=== PATIENT | female | born 1940 | race Caucasian/White ===

== ENCOUNTER 2025-07-30 18:27 | Inpatient (IN) | payer MEDICARE, OTHER ==
[~2025-07-30] VITALS: Ht 167.6 cm; Wt 54.9 kg
[2025-07-30] MEDS: LABETALOL 20 MG/4 ML VIAL IV ONE (00:09)
[2025-07-30 19:35] LABS: PLATELET COUNT (AUTO) 279 K/uL (150-450); RED BLOOD CELL COUNT(AUTO) 4.49 MIL/uL (4.0-5.2); RED CELL DISTRIBUTION WIDTH 18.9 % (11.5-15.0); WHITE BLOOD COUNT (AUTO) 5.1 K/uL (4.3-11.0)
[2025-07-30 19:46] LABS: CALCIUM, SERUM 9.1 mg/dL (8.5-10.1); CREATININE 1.2 mg/dL (0.6-1.3); SODIUM SERUM 133 mmol/L (136-145); UREA NITROGEN, BLOOD 22 mg/dL (7-18)
[2025-07-30 19:55] LABS: LACTIC ACID 2.5 mmol/L (0.4-2.0)
[2025-07-30 19:58] LABS: ASPARTATE AMINOTRANSFERASE 27 U/L (15-37); TOTAL PROTEIN, SERUM 6.8 g/dL (6.4-8.2)
[2025-07-30 20:27] LABS: CREATINE KINASE, TOTAL 119 U/L (26-192); SERUM AMMONIA < 11 umol/L (11-32)
[2025-07-30 20:50] LABS: ALCOHOL, BLOOD < 3 mg/dL (0-10)
[2025-07-30 21:02] LABS: APPEARANCE,URINE CLEAR (CLEAR); BLOOD, URINE NEGATIVE Ery/uL (NEGATIVE); LEUKOCYTE ESTERASE ,URINE NEGATIVE (NEGATIVE); NITRITE, URINE NEGATIVE (NEGATIVE); UGLUCOSE NEGATIVE (NEGATIVE)
[2025-07-30 21:10] LABS: AMPHETAMINE, URINE NEGATIVE (NEGATIVE); BARBITURATE, URINE NEGATIVE (NEGATIVE); BENZODIAZEPINE, URINE NEGATIVE (NEGATIVE); CANNABINOID, URINE NEGATIVE (NEGATIVE); COCCAINE, URINE NEGATIVE (NEGATIVE); OPIATE, URINE NEGATIVE (NEGATIVE)
[2025-07-30 21:14] LABS: INR 1.02 (0.91-1.10)
[2025-07-30 21:40] LABS: ADD URINE CULTURE NO; SQUAMOUS EPITHELIAL CELL,UR 0-2 /HPF (None Seen)
[2025-07-30] MEDS ORDERED: PIPERACI/TAZO 3.375GM/D5W 50ML PB IV ONE (22:31)
[2025-07-30] MEDS: PIPERACILLIN /TAZOBACTAM 3.375 G in IV D5W 50 ML IV ONE (22:45)
[2025-07-30] MEDS: IV NS 0.9% 500 ML BAG IV ONE (22:45)
[2025-07-30] MEDS ORDERED: DOSING PER PHARMACY-ZOSYN IV 1 EA EA XX PRN (23:30)
[2025-07-30] MEDS ORDERED: ONDANSETRON HCL/PF 4 MG/2 ML VIAL IVP PRN (23:30)
[2025-07-30] MEDS ORDERED: MAG HYDROX/AL HYDROX/SIMETH 30 ML UDC PO PRN (23:30)
[2025-07-30] MEDS ORDERED: Z GUARD REMEDY 4 OZ OINT TP PRN (23:30)
[2025-07-30] MEDS ORDERED: MAGNESIUM HYDROXIDE 30 ML UDC PO PRN (23:30)
[2025-07-31] MEDS ORDERED: LABETALOL HCL IV 100MG VIAL ONE (00:01)
[2025-07-31 01:25] VITALS: BP 155/77; TEMP 96.9; O2SAT 96
[2025-07-31] MEDS ORDERED: PIPERACI/TAZO 3.375GM/D5W 50ML PB IV ONE ×2 (01:46→06:05)
[2025-07-31] MEDS: ZOSYN IVPB 3.375 G in IV D5W 50ml IV SCH (01:48)
[2025-07-31] MEDS: IV NS 0.9% 1,000 ML IV PRN (01:57)
[2025-07-31 04:40] VITALS: BP 155/77; TEMP 97.7; O2SAT 98
[2025-07-31 05:51] LABS: PLATELET COUNT (AUTO) 278 K/uL (150-450); RED BLOOD CELL COUNT(AUTO) 4.22 MIL/uL (4.0-5.2); RED CELL DISTRIBUTION WIDTH 18.0 % (11.5-15.0); WHITE BLOOD COUNT (AUTO) 5.8 K/uL (4.3-11.0)
[2025-07-31 06:01] LABS: CALCIUM, SERUM 8.7 mg/dL (8.5-10.1); CREATININE 1.4 mg/dL (0.6-1.3); PHOSPHORUS 3.1 mg/dL (2.5-4.9); SODIUM SERUM 140 mmol/L (136-145); UREA NITROGEN, BLOOD 20 mg/dL (7-18)
[2025-07-31] MEDS: PANTOPRAZOLE 40 MG TABLET.DR PO SCH (07:48)
[2025-07-31 08:00] VITALS: BP 141/70; TEMP 97.7; O2SAT 98
[2025-07-31] MEDS ORDERED: LEVO75TA99 PO (10:18)
[2025-07-31] MEDS ORDERED: SUCR1TAB31 PO (10:18)
[2025-07-31] MEDS ORDERED: ATOR10TA PO (10:18)
[2025-07-31] MEDS ORDERED: FLUO40CA49 PO (10:18)
[2025-07-31] MEDS ORDERED: BUPR-319 PO (10:18)
[2025-07-31] MEDS: POTASSIUM CHLORIDE 20 MEQ TAB.PRT.SR PO SCH (11:10)
[2025-07-31] MEDS: MAGNESIUM OXIDE 400 MG TABLET PO ONE (11:10)
[2025-07-31] MEDS: ZOSYN IVPB 2.25 G in IV D5W 50ml IV SCH (12:07)
[2025-07-31 16:00] VITALS: BP_SYST 141; BP_SYST 147; BP_DIAS 70; BP_DIAS 89; TEMP 97.7; TEMP 98.6; O2SAT 98
[2025-07-31 22:14] VITALS: BP 166/87; TEMP 97; O2SAT 98
[2025-08-01 07:00] VITALS: BP 138/78; TEMP 98.2; O2SAT 100
[2025-08-01 07:45] LABS: PLATELET COUNT (AUTO) 279 K/uL (150-450); RED BLOOD CELL COUNT(AUTO) 4.33 MIL/uL (4.0-5.2); RED CELL DISTRIBUTION WIDTH 18.5 % (11.5-15.0); WHITE BLOOD COUNT (AUTO) 5.5 K/uL (4.3-11.0)
[2025-08-01 08:20] LABS: ASPARTATE AMINOTRANSFERASE 25.0 U/L (15-37); CALCIUM, SERUM 8.7 mg/dL (8.5-10.1); CREATININE 1.4 mg/dL (0.6-1.3); PHOSPHORUS 2.8 mg/dL (2.5-4.9); SODIUM SERUM 142.0 mmol/L (136-145); TOTAL PROTEIN, SERUM 5.9 g/dL (6.4-8.2); UREA NITROGEN, BLOOD 12.0 mg/dL (7-18)
[2025-08-01 08:24] LABS: CREATINE KINASE, TOTAL 141.0 U/L (26-192)
[2025-08-01 16:00] VITALS: BP 155/79; TEMP 97.5; O2SAT 100
[2025-08-01 16:34] LABS: APPEARANCE,URINE CLEAR (CLEAR); BLOOD, URINE NEGATIVE Ery/uL (NEGATIVE); LEUKOCYTE ESTERASE ,URINE NEGATIVE (NEGATIVE); NITRITE, URINE NEGATIVE (NEGATIVE); UGLUCOSE NEGATIVE (NEGATIVE)
[2025-08-01 16:41] LABS: CREATININE, URINE 65.0 MG/DL (30.0-125.0); URINE SODIUM, RANDOM 60.0 mmol/l (40-220); URINE TOTAL PROTEIN 12.3 mg/dL (0-11.9)
[2025-08-01 16:53] LABS: ADD URINE CULTURE NO; SQUAMOUS EPITHELIAL CELL,UR 0-2 /HPF (None Seen)
[2025-08-01 19:16] LABS: EOSINOPHIL,URINE None Seen
[2025-08-01] MEDS: SUCRALFATE 1 G TABLET PO SCH (21:31)
[2025-08-01 21:53] VITALS: BP 170/89; TEMP 97.9; O2SAT 100
[2025-08-01 22:00] VITALS: BP 130/75; TEMP 97.8; O2SAT 98
[2025-08-02 07:25] LABS: CALCIUM, SERUM 8.8 mg/dL (8.5-10.1); CREATININE 1.2 mg/dL (0.6-1.3); SODIUM SERUM 144.0 mmol/L (136-145); UREA NITROGEN, BLOOD 9.0 mg/dL (7-18)
[2025-08-02] MEDS: LEVOTHYROXINE SODIUM 75 MCG TABLET PO SCH (07:38)
[2025-08-02 08:14] VITALS: BP_SYST 132; BP_SYST 184; BP_DIAS 78; BP_DIAS 80; TEMP 97.6; O2SAT 100
[2025-08-02] MEDS: BUPROPION XL 150 MG TAB.ER.24 PO SCH (08:46)
[2025-08-02] MEDS: FLUOXETINE HCL 20 MG CAPSULE PO SCH (08:46)
[2025-08-02] MEDS: ATORVASTATIN 10 MG TABLET PO SCH (08:46)
[2025-08-02 09:08] LABS: PTH, INTACT 75 pg/mL (15-65)
[2025-08-02] MEDS: POTASSIUM CHLORIDE 20 MEQ POWDER PACKET PO ONE ×2 (09:13→11:33)
[2025-08-02] MEDS: MAGNESIUM OXIDE 400 MG TABLET PO ONE (09:17)
[2025-08-02 09:49] LABS: LDL 68 mg/dL (0-99)
[2025-08-02 15:52] VITALS: BP 162/97; TEMP 98.1; O2SAT 97
[2025-08-02 20:20] VITALS: BP 166/76; TEMP 97.4; O2SAT 96
[2025-08-02 23:40] VITALS: BP 140/91
[2025-08-03] MEDS: ACETAMINOPHEN 325 MG TABLET PO PRN (06:38)
[2025-08-03 07:07] LABS: CALCIUM, SERUM 9.2 mg/dL (8.5-10.1); CREATININE 1.1 mg/dL (0.6-1.3); SODIUM SERUM 143.0 mmol/L (136-145); UREA NITROGEN, BLOOD 10.0 mg/dL (7-18)
[2025-08-03 08:00] VITALS: BP 164/87; TEMP 97.6; O2SAT 100
[2025-08-03] MEDS: ASPIRIN 325 MG TABLET PO SCH (12:26)
[2025-08-03] MEDS ORDERED: IV NS 0.9% 250 ML IV ONE (13:47)
[2025-08-03] MEDS ORDERED: IOHEXOL-350 100 ML VIAL IV ONE (13:47)
[2025-08-03 16:00] VITALS: BP 133/84; TEMP 98.2; O2SAT 96
[2025-08-03 20:00] VITALS: BP 118/61; TEMP 97.5; O2SAT 100
[2025-08-03] MEDS: ATORVASTATIN 40 MG TABLET PO SCH (21:03)
[2025-08-04] VITALS (7 sets, daily range): BP systolic 116–179; BP diastolic 60–92; TEMP 97.8–98.2; O2SAT 96–99
[2025-08-04 07:11] LABS: CALCIUM, SERUM 8.6 mg/dL (8.5-10.1); CREATININE 1.3 mg/dL (0.6-1.3); SODIUM SERUM 140.0 mmol/L (136-145); UREA NITROGEN, BLOOD 12.0 mg/dL (7-18)
[2025-08-04] MEDS: ALPRAZOLAM 0.25 MG TABLET PO PRN (08:49)
[2025-08-04] MEDS: POTASSIUM CHLORIDE 20 MEQ TAB.PRT.SR PO ONE (10:42)
[2025-08-04] MEDS: ZOLPIDEM TARTRATE 5 MG TABLET PO PRN (21:08)
[2025-08-05] VITALS: BP 137/62; TEMP 98; O2SAT 98
[2025-08-05 04:00] VITALS: BP 145/91; TEMP 97.7; O2SAT 98
[2025-08-05 07:00] VITALS: BP 152/89; TEMP 97.5; O2SAT 98
[2025-08-05 11:30] VITALS: BP 143/88; TEMP 97.3; O2SAT 100
[2025-08-05 12:15] LABS: CALCIUM, SERUM 8.9 mg/dL (8.5-10.1); CREATININE 1.4 mg/dL (0.6-1.3); SODIUM SERUM 139.0 mmol/L (136-145); UREA NITROGEN, BLOOD 10.0 mg/dL (7-18)
[2025-08-05 16:00] VITALS: BP 145/77; TEMP 97.5; O2SAT 100
[2025-08-05] MEDS ORDERED: IV NS 0.9% 1,000 ML BAG IV PRN (16:00)
[2025-08-05] MEDS: POTASSIUM CHLORIDE 20 MEQ TAB.PRT.SR PO ONE (16:32)
[2025-08-06] VITALS (22 sets, daily range): BP systolic 92–197; BP diastolic 52–130; TEMP 97–98.1; O2SAT 95–100
[2025-08-06] MEDS ORDERED: IV NS 0.9% 1,000 ML BAG IV SCH ×2
[2025-08-06 06:30] LABS: PLATELET COUNT (AUTO) 282 K/uL (150-450); RED BLOOD CELL COUNT(AUTO) 4.23 MIL/uL (4.0-5.2); RED CELL DISTRIBUTION WIDTH 19.7 % (11.5-15.0); WHITE BLOOD COUNT (AUTO) 5.7 K/uL (4.3-11.0)
[2025-08-06 06:55] LABS: CALCIUM, SERUM 9.0 mg/dL (8.5-10.1); CREATININE 1.2 mg/dL (0.6-1.3); SODIUM SERUM 141.0 mmol/L (136-145); UREA NITROGEN, BLOOD 9.0 mg/dL (7-18)
[2025-08-06 07:15] LABS: INR 1.11 (0.91-1.10)
[2025-08-06] MEDS: LORAZEPAM INJ 2 MG/ML VIAL IV ONE (08:04)
[2025-08-06] MEDS: POTASSIUM CL. PREMIX PERIPHER. 50 ML IV SCH (08:09)
[2025-08-06] MEDS ORDERED: HEMOSTATIC MATRIX 8 ML 1 EACH PAD MC ONE (09:44)
[2025-08-06] MEDS ORDERED: GELATIN SPONGE,ABSORBABLE 1 EA SPONGE TP ONE (09:44)
[2025-08-06] MEDS ORDERED: ANESTHESIA TRAY IN PYXIS 1 EA TRAY MC ONE ×3 (09:44→19:52)
[2025-08-06] MEDS ORDERED: CELLULOSE,OXIDIZED 1 EA PACK MC ONE (09:44)
[2025-08-06] MEDS ORDERED: ROPIVACAINE HCL 0.5% 5 MG/ML 30ML VIAL ONE (09:45)
[2025-08-06] MEDS ORDERED: CELLULOSE,OXIDIZED 1 EACH EACH MC ONE (09:45)
[2025-08-06] MEDS ORDERED: CELLULOSE,OXIDIZED 1 PKT EACH MC ONE (09:45)
[2025-08-06] MEDS ORDERED: LIDOCAINE HCL/MPF 1% 30 ML VIAL IJ ONE (09:45)
[2025-08-06] MEDS: CLONIDINE HCL 0.2MG/24H PTWK 1 EA PATCH TD SCH (12:04)
[2025-08-06] MEDS ORDERED: SEVOFLURANE 250 ML BOTTLE IH ONE (15:30)
[2025-08-06] MEDS ORDERED: VASOPRESSIN INJ 20 UNIT/ML VIAL ONE (15:31)
[2025-08-06] MEDS ORDERED: ROCURONIUM BROMIDE 50 MG/5 ML ONE (15:31)
[2025-08-06] MEDS ORDERED: FENTANYL PF 100MCG/2ML AMPUL ONE ×2 (15:31)
[2025-08-06] MEDS ORDERED: HYDROMORPHONE 1 MG/1 ML DISP.SYRIN IV PRN (16:00)
[2025-08-06] MEDS ORDERED: HEPARIN SODIUM, PORCINE 5000 UNITS/1 ML VIAL ONE (16:52)
[2025-08-06] MEDS ORDERED: GENTAMICIN 80 MG/2 ML VIAL ONE (18:11)
[2025-08-06] MEDS: NICARDIPINE IN NACL, ISO-OSM 200 ML IV PRN (20:37)
[2025-08-06 20:57] LABS: PLATELET COUNT (AUTO) 284 K/uL (150-450); RED BLOOD CELL COUNT(AUTO) 4.22 MIL/uL (4.0-5.2); RED CELL DISTRIBUTION WIDTH 19.7 % (11.5-15.0); WHITE BLOOD COUNT (AUTO) 9.1 K/uL (4.3-11.0)
[2025-08-06 21:01] LABS: CALCIUM, SERUM 8.2 mg/dL (8.5-10.1); CREATININE 1.1 mg/dL (0.6-1.3); SODIUM SERUM 139.0 mmol/L (136-145); UREA NITROGEN, BLOOD 11.0 mg/dL (7-18)
[2025-08-06] MEDS ORDERED: HYDROCODONE/APAP 5/325MG TABLET PO PRN ×2 (22:00)
[2025-08-06] MEDS ORDERED: CLONIDINE HCL 0.1 MG TABLET PO PRN (22:00)
[2025-08-06] MEDS: HYDROCODONE/APAP 5/325MG TABLET PO PRN (23:48)
[2025-08-06] MEDS ORDERED: CEFAZOLIN 1 GM ONE (23:53)
[2025-08-07] VITALS (26 sets, daily range): BP systolic 117–170; BP diastolic 50–117; TEMP 97–98.4; O2SAT 95–100
[2025-08-07] MEDS: CEFAZOLIN 1 GM in IV D5W 50 ML IV SCH ×2 (00:06→09:40)
[2025-08-07 04:05] LABS: PLATELET COUNT (AUTO) 269 K/uL (150-450); RED BLOOD CELL COUNT(AUTO) 4.09 MIL/uL (4.0-5.2); RED CELL DISTRIBUTION WIDTH 19.5 % (11.5-15.0); WHITE BLOOD COUNT (AUTO) 7.4 K/uL (4.3-11.0)
[2025-08-07 04:09] LABS: CALCIUM, SERUM 8.5 mg/dL (8.5-10.1); CREATININE 1.2 mg/dL (0.6-1.3); SODIUM SERUM 141.0 mmol/L (136-145); UREA NITROGEN, BLOOD 16.0 mg/dL (7-18)
[2025-08-07] MEDS: Magnesium 1GM/D5W 100ML PREMIX 100 ML IV SCH (10:42)
[2025-08-08] VITALS (7 sets, daily range): BP systolic 115–154; BP diastolic 63–91; TEMP 96.4–98.4; O2SAT 96–98
[2025-08-08 06:22] LABS: PLATELET COUNT (AUTO) 296 K/uL (150-450); RED BLOOD CELL COUNT(AUTO) 3.73 MIL/uL (4.0-5.2); RED CELL DISTRIBUTION WIDTH 19.7 % (11.5-15.0); WHITE BLOOD COUNT (AUTO) 9.3 K/uL (4.3-11.0)
[2025-08-08 06:38] LABS: CALCIUM, SERUM 8.8 mg/dL (8.5-10.1); CREATININE 1.1 mg/dL (0.6-1.3); PHOSPHORUS 2.2 mg/dL (2.5-4.9); SODIUM SERUM 141.0 mmol/L (136-145); UREA NITROGEN, BLOOD 16.0 mg/dL (7-18)
[2025-08-08] MEDS: POTASSIUM CHLORIDE 20 MEQ TAB.PRT.SR PO SCH (09:12)
[2025-08-08] MEDS ORDERED: ASPI-1169 PO (12:12)
[2025-08-08] MEDS: K PHOS NEUTRAL 250 MG TABLET PO ONE (17:40)
== END 2025-08-08 19:20 | DRG 23 ==
LOC: ER 18:30 → MED 23:43 → TELE 07-31 03:09 → MED 07-31 09:17 → TELE 08-04 03:13 → ICU 08-06 19:27 → TELE 08-07 14:02
PROVIDERS: ADMIT Student in an Organized Health Care Education/Training Program; ATTEND Nurse Practitioner Family
PROC: 03UL3JZ Supplement Left Internal Carotid Artery with Synthetic Substitute, Percutaneous Approach (ICD-10-PCS; 2025-08-06)
PROC: 03CL3ZZ Extirpation of Matter from Left Internal Carotid Artery, Percutaneous Approach (ICD-10-PCS; principal; 2025-08-06 14:00)
DX: I63.232 Cerebral infarction due to unspecified occlusion or stenosis of left carotid arteries (principal); G92.8 Other toxic encephalopathy; N17.0 Acute kidney failure with tubular necrosis; E87.1 Hypo-osmolality and hyponatremia; E87.20 Acidosis, unspecified; E86.0 Dehydration; I48.91 Unspecified atrial fibrillation; K43.9 Ventral hernia without obstruction or gangrene; E03.8 Other specified hypothyroidism; E83.89 Other disorders of mineral metabolism; Z87.891 Personal history of nicotine dependence; Z98.84 Bariatric surgery status; Z90.49 Acquired absence of other specified parts of digestive tract; Z86.73 Personal history of transient ischemic attack (TIA), and cerebral infarction without residual deficits; G83.21 Monoplegia of upper limb affecting right dominant side; E87.6 Hypokalemia; N18.9 Chronic kidney disease, unspecified; D50.9 Iron deficiency anemia, unspecified; Z91.81 History of falling; F32.A Depression, unspecified; Z90.710 Acquired absence of both cervix and uterus; M62.81 Muscle weakness (generalized); F39 Unspecified mood [affective] disorder; R59.1 Generalized enlarged lymph nodes; R29.702 NIHSS score 2
CPT/HCPCS: 36415; 70450-TC; 70496-TC; 70498-TC; 70551-TC; 71045-TC; 71250-TC; 80048-TC; 80053-TC; 80061-TC; 80076-TC; 81001; 82140-TC; 82550-TC; 82570-TC; 82962-TC; 83605-TC; 83735-TC; 83970; 84100-TC; 84155; 84165; 84300-TC; 84439-TC; 84443-TC; 84484-TC; 85025-TC; 85610-TC; 85730-TC; 86850-TC; 87040-TC; 88304-TC; 92526; 92611; 93307-TC; 93880-TC; 93970-TC; 97110-TC; 97112-TC; 97116-TC; 97168; 97530-TC; 97535-TC; A4223; C1751; C1769; C1781; G0378; G0480; J0690; J1100; J1580; J1644; J2060; J2405; J2543; J2704; J2720; J2795; J3010; J3475; J3480; J3490; J7030; J7040; J7050; J7060; Q9967